=== PATIENT | female | born 1975 | race Hispanic/Latino ===

== ENCOUNTER 2019-02-14 14:25 | Emergency (ER) | payer MEDICAID, OTHER ==
[~2019-02-14 14:25] MED LIST: TYL2 PO; ZOLP10TA6 PO
[2019-02-14] MEDS ORDERED: ONDANSETRON HCL 4 MG/2 ML VIAL ONE (14:47)
[2019-02-14] MEDS ORDERED: SODIUM CHLORIDE 0.9% 1000ML 1,000 ML IV ONE ×2 (14:47→15:34)
[2019-02-14 14:58] LABS: BASOPHILS % (AUTO) 0.3 % (0.0-5.0); EOSINOPHILS % (AUTO) 0.2 % (0.0-8.0); HEMATOCRIT 47.9 % (36-48); LYMPHOCYTES % (AUTO) 3.1 % (21.0-51.0); MEAN CORPUSCULAR HEMOGLOBIN 29.2 pg (27.0-33.0); MEAN CORPUSCULAR HGB CONC 33.7 g/dL (32.0-36.0); MEAN CORPUSCULAR VOLUME 86.4 fL (79-99); MONOCYTES % (AUTO) 2.3 % (3.0-13.0); NEUTROPHILS % (AUTO) 94.1 % (40.0-77.0); PLATELET COUNT (AUTO) 286 K/uL (130-400); RED BLOOD CELL COUNT(AUTO) 5.54 MIL/uL (4.00-5.50); RED CELL DISTRIBUTION WIDTH 13.3 % (11.0-15.5); WHITE BLOOD COUNT (AUTO) 15.8 K/uL (4.8-10.8)
[2019-02-14 15:01] LABS: APPEARANCE,URINE Cloudy (CLEAR); BILIRUBIN,URINE Negative (NEGATIVE); COLOR,URINE Yellow (YELLOW); GLUCOSE, URINE (UA) Negative (NEGATIVE); KETONES,URINE 40 mg/dL (NEGATIVE); LEUKOCYTE ESTERASE ,URINE Small (NEGATIVE); NITRATE,URINE Negative (NEGATIVE); OCCULT BLOOD,URINE Negative (NEGATIVE); PROTEIN,URINE Trace mg/dL (NEGATIVE)
[2019-02-14 15:04] LABS: HCG,QUAL RESULT NEGATIVE (NEGATIVE)
[2019-02-14 15:09] LABS: CREATININE 0.9 mg/dL (0.5-1.5); POTASSIUM 3.9 mmol/L (3.5-5.1)
[2019-02-14 15:13] LABS: BILIRUBIN,TOTAL 0.6 mg/dL (0.2-1.0); TOTAL PROTEIN, SERUM 8.6 g/dL (6.0-8.3)
[2019-02-14 15:20] LABS: BACTERIA,URINE Moderate /HPF (None Seen); MUCUS,URINE Moderate LPF (None Seen)
[2019-02-14] MEDS ORDERED: FAMOTIDINE/PF 20 MG/2 ML VIAL IV ONE (15:35)
[2019-02-14] MEDS ORDERED: MORPHINE SULFATE 4 MG/1ML SYG ONE (15:35)
[2019-02-14] MEDS ORDERED: IOHEXOL-350 75 ML VIAL IV ONE (17:10)
== END 2019-02-14 18:09 | disposition home or self-care (01) ==
LOC: EDH 14:25
DX: R19.7 Diarrhea, unspecified (principal); R11.2 Nausea with vomiting, unspecified; R10.13 Epigastric pain; I10 Essential (primary) hypertension; Z90.710 Acquired absence of both cervix and uterus
CPT/HCPCS: 36415; 74177; 80053; 81001; 81025; 82150; 83690; 85025; 96365; 96366; 96375; 99285; J2270; J2405; J3490; J7030 ×2; Q9967

== ENCOUNTER 2019-03-15 12:26 | Emergency (ER) | payer SELFPAY ==
[2019-03-15] MEDS ORDERED: ACETAMINOPHEN 325 MG TAB ONE (13:21)
[2019-03-15] MEDS ORDERED: PHENAZOPYRIDINE HCL 200 MG TABLET ONE (13:37)
[2019-03-15 14:33] LABS: APPEARANCE,URINE Cloudy (CLEAR); BILIRUBIN,URINE Negative (NEGATIVE); COLOR,URINE Yellow (YELLOW); GLUCOSE, URINE (UA) Negative (NEGATIVE); KETONES,URINE Negative (NEGATIVE); LEUKOCYTE ESTERASE ,URINE Moderate (NEGATIVE); NITRATE,URINE Negative (NEGATIVE); OCCULT BLOOD,URINE Negative (NEGATIVE); PH,URINE 6.5 (5.0-8.0); PROTEIN,URINE Negative (NEGATIVE)
[2019-03-15] MEDS ORDERED: LIDOCAINE HCL-MPF 1% 2ML VIAL ONE (15:04)
[2019-03-15] MEDS ORDERED: CEFTRIAXONE SODIUM 1 GM ONE (15:04)
[2019-03-15 15:11] LABS: BACTERIA,URINE Few /HPF (None Seen); RBC,URINE 0-1 /HPF (0-1); SQUAMOUS EPITHELIAL CELL,UR 30-50 /HPF (0-2)
== END 2019-03-15 15:34 | disposition home or self-care (01) ==
LOC: EDH 12:26
DX: N39.0 Urinary tract infection, site not specified (principal); I10 Essential (primary) hypertension; Z90.710 Acquired absence of both cervix and uterus; Z87.891 Personal history of nicotine dependence
CPT/HCPCS: 81001; 96372; 99283; J0696; J3490

== ENCOUNTER 2021-09-03 09:45 | Inpatient (IN) | payer OTHER ==
[~2021-09-03] VITALS: Ht 162.6 cm; Wt 113.4 kg
[2021-09-03 10:39] LABS: BASOPHILS % (AUTO) 0.4 % (0.0-5.0); EOSINOPHILS % (AUTO) 1.5 % (0.0-8.0); HEMATOCRIT 44.3 % (36-48); LYMPHOCYTES % (AUTO) 19.9 % (21.0-51.0); MEAN CORPUSCULAR HEMOGLOBIN 27.7 pg (27.0-33.0); MEAN CORPUSCULAR HGB CONC 32.7 g/dL (32.0-36.0); MEAN CORPUSCULAR VOLUME 84.5 fL (79-99); MONOCYTES % (AUTO) 4.2 % (3.0-13.0); NEUTROPHILS % (AUTO) 73.8 % (40.0-77.0); PLATELET COUNT (AUTO) 304 K/uL (130-400); RED BLOOD CELL COUNT(AUTO) 5.24 MIL/uL (4.00-5.50); RED CELL DISTRIBUTION WIDTH 12.7 % (11.0-15.5); WHITE BLOOD COUNT (AUTO) 9.6 K/uL (4.8-10.8)
[2021-09-03 10:43] LABS: APPEARANCE,URINE Clear (CLEAR); BILIRUBIN,URINE Negative (NEGATIVE); COLOR,URINE Yellow (YELLOW); GLUCOSE, URINE (UA) Negative (NEGATIVE); KETONES,URINE Negative (NEGATIVE); LEUKOCYTE ESTERASE ,URINE Trace (NEGATIVE); NITRATE,URINE Negative (NEGATIVE); OCCULT BLOOD,URINE Trace (NEGATIVE); PH,URINE 6.5 (5.0-8.0); PROTEIN,URINE Negative (NEGATIVE)
[2021-09-03 10:48] LABS: CREATININE 1.1 mg/dL (0.5-1.5)
[2021-09-03 10:52] LABS: ALBUMIN 3.6 g/dL (3.5-5.0); BILIRUBIN,TOTAL 0.6 mg/dL (0.2-1.0)
[2021-09-03 11:00] LABS: HCG,QUAL RESULT NEGATIVE (NEGATIVE)
[2021-09-03 11:22] LABS: BACTERIA,URINE Rare /HPF (None Seen); RBC,URINE None Seen /HPF (0-1); SQUAMOUS EPITHELIAL CELL,UR 0-2 /HPF (0-2); WBC,URINE 0-1 /HPF (0-1)
[2021-09-03] MEDS ORDERED: KETOROLAC 30MG VIAL (30MG/ML) IVP SCH (12:00)
[2021-09-03] MEDS ORDERED: TAMSULOSIN HCL 0.4 MG CAP.ER.24H ONE ×2 (12:25→20:23)
[2021-09-03] MEDS ORDERED: 0.9%NACL 1000ML 1,000 ML IV ONE (13:30)
[2021-09-03] MEDS ORDERED: MORPHINE 4 MG SYG IVP ONE (13:30)
[2021-09-03] MEDS ORDERED: ONDANSETRON 4MG INJ IVP ONE (13:30)
[2021-09-03] MEDS ORDERED: TAMSULOSIN HCL 0.4 MG CAP.ER.24H PO SCH ×2 (13:30→21:00)
[2021-09-03] MEDS ORDERED: ONDANSETRON 4MG INJ IVP PRN (14:00)
[2021-09-03] MEDS: CEFTRIAXONE 2GM VIAL IVP SCH (15:25)
[2021-09-03 17:00] VITALS: BP 147/80
[2021-09-03] MEDS: MORPHINE 2 MG SYG IVP PRN (18:06)
[2021-09-03 19:48] VITALS: BP 150/79
[2021-09-03] MEDS: LACTATED RINGERS 1000ML 1,000 ML IV SCH (20:29)
[2021-09-03 23:22] VITALS: BP 125/79
[2021-09-04] VITALS (12 sets, daily range): BP systolic 133–152; BP diastolic 71–103
[2021-09-04] MEDS: MORPHINE 2 MG SYG IVP PRN ×4 (00:19→22:39)
[2021-09-04] MEDS: LACTATED RINGERS 1000ML 1,000 ML IV SCH ×3 (03:26→22:36)
[2021-09-04 05:09] LABS: INR 1.08 (0.85-1.15); PROTHROMBIN TIME 11.7 SEC (9.6-11.6)
[2021-09-04 06:31] LABS: BASOPHILS % (AUTO) 0.4 % (0.0-5.0); EOSINOPHILS % (AUTO) 1.6 % (0.0-8.0); HEMATOCRIT 40.3 % (36-48); LYMPHOCYTES % (AUTO) 18.3 % (21.0-51.0); MEAN CORPUSCULAR HEMOGLOBIN 28.8 pg (27.0-33.0); MEAN CORPUSCULAR VOLUME 84.8 fL (79-99); MONOCYTES % (AUTO) 4.9 % (3.0-13.0); NEUTROPHILS % (AUTO) 74.5 % (40.0-77.0); PLATELET COUNT (AUTO) 264 K/uL (130-400); RED BLOOD CELL COUNT(AUTO) 4.75 MIL/uL (4.00-5.50); RED CELL DISTRIBUTION WIDTH 12.9 % (11.0-15.5)
[2021-09-04 06:39] LABS: POTASSIUM 3.7 mmol/L (3.5-5.1)
[2021-09-04] MEDS: PANTOPRAZOLE 40 MG/VIAL IVP SCH (08:57)
[2021-09-04] MEDS: TAMSULOSIN HCL 0.4 MG CAP.ER.24H PO SCH (08:57)
[2021-09-04] MEDS: ASPIRIN 81MG CHEW TAB PO SCH ×2 (08:57→09:00)
[2021-09-04] MEDS ORDERED: MIDAZOLAM HCL 1 MG/ML 2ML VIAL ONE (11:55)
[2021-09-04] MEDS ORDERED: IOHEXOL-350 75 ML VIAL IV ONE (11:55)
[2021-09-04] MEDS ORDERED: FENTANYL CITRATE PF 50 MCG/1 ML 2ML VIAL ONE ×2 (11:55→12:23)
[2021-09-04] MEDS ORDERED: LIDOCAINE HCL 1% MDV 50ML VIAL ONE (11:56)
[2021-09-04] MEDS: CEFTRIAXONE 2GM VIAL IVP SCH (15:16)
[2021-09-04] MEDS: KETOROLAC 15MG/ML VIAL (15MG/ML) IV PRN (17:37)
[2021-09-05 04:01] VITALS: BP 121/67
[2021-09-05 04:50] LABS: HEMATOCRIT 38.5 % (36-48); MEAN CORPUSCULAR HEMOGLOBIN 27.9 pg (27.0-33.0); MEAN CORPUSCULAR HGB CONC 32.7 g/dL (32.0-36.0); MEAN CORPUSCULAR VOLUME 85.2 fL (79-99); RED BLOOD CELL COUNT(AUTO) 4.52 MIL/uL (4.00-5.50); RED CELL DISTRIBUTION WIDTH 12.7 % (11.0-15.5); WHITE BLOOD COUNT (AUTO) 7.1 K/uL (4.8-10.8)
[2021-09-05 05:02] LABS: CREATININE 0.8 mg/dL (0.5-1.5); POTASSIUM 3.1 mmol/L (3.5-5.1)
[2021-09-05 08:00] VITALS: BP 152/87
[2021-09-05] MEDS: PANTOPRAZOLE 40 MG/VIAL IVP SCH (09:16)
[2021-09-05] MEDS: TAMSULOSIN HCL 0.4 MG CAP.ER.24H PO SCH (09:16)
[2021-09-05] MEDS: ASPIRIN 81MG CHEW TAB PO SCH (09:17)
[2021-09-05] MEDS: MORPHINE 2 MG SYG IVP PRN (09:20)
[2021-09-05] MEDS ORDERED: POTASSIUM CHLORIDE 20MEQ/100ML 100 ML IV PRN (10:00)
[2021-09-05] MEDS ORDERED: POTASSIUM CHLORIDE 10% ELIXIR 20 MEQ/15 ML UDCUP PO SCH (10:00)
[2021-09-05] MEDS ORDERED: POTASSIUM CHLORIDE 10% ELIXIR 20 MEQ/15 ML UDCUP PO PRN (10:00)
[2021-09-05] MEDS ORDERED: LIDOCAINE HCL-MPF 1% 2ML VIAL IV PRN (10:00)
[2021-09-05] MEDS ORDERED: LACTATED RINGERS 1000ML 1,000 ML IV SCH (10:30)
[2021-09-05 10:33] LABS: INR 1.07 (0.85-1.15); PROTHROMBIN TIME 11.6 SEC (9.6-11.6)
[2021-09-05 10:34] LABS: PARTIAL THROMBOPLASTIN TIME 29.4 SEC (26.3-35.5)
[2021-09-05] MEDS ORDERED: AMOX-426 PO (11:09)
[2021-09-05] MEDS ORDERED: ACET-2079 PO (11:09)
[2021-09-05 12:00] VITALS: BP 148/95
[2021-09-05] MEDS: KCL 20 MEQ ERTAB PO PRN ×2 (12:51→14:55)
[2021-09-05] MEDS: KETOROLAC 15MG/ML VIAL (15MG/ML) IV PRN (12:56)
[2021-09-05] MEDS: CEFTRIAXONE 2GM VIAL IVP SCH (14:54)
== END 2021-09-05 15:49 | disposition home or self-care (01) | DRG 694 ==
LOC: EDH 09:45 → EDHIP 09:46 → INTOOBSV 13:58 → UNDOADMOB 13:58 → OBSVTOIN 13:58 → EDHIP 13:58 → 3BH 17:06
PROVIDERS: ADMIT Hospitalist; ATTEND Hospitalist
PROC: 0TJ53ZZ Inspection of Kidney, Percutaneous Approach (ICD-10-PCS; principal; 2021-09-04)
DX: N13.2 Hydronephrosis with renal and ureteral calculous obstruction (principal); Z68.41 Body mass index [BMI] 40.0-44.9, adult; E66.01 Morbid (severe) obesity due to excess calories; N13.9 Obstructive and reflux uropathy, unspecified; E78.00 Pure hypercholesterolemia, unspecified; I10 Essential (primary) hypertension; Z86.73 Personal history of transient ischemic attack (TIA), and cerebral infarction without residual deficits; Z82.49 Family history of ischemic heart disease and other diseases of the circulatory system; Z83.3 Family history of diabetes mellitus; Z82.0 Family history of epilepsy and other diseases of the nervous system; Z82.5 Family history of asthma and other chronic lower respiratory diseases; Z90.49 Acquired absence of other specified parts of digestive tract; Z82.3 Family history of stroke
CPT/HCPCS: 36415; 50432; 74176; 76942; 80048; 80053; 81001; 81025; 83690; 85025; 85027; 85610; 85730; 87071; 87076; 87077; 87088; 87186; 87205; 99156; 99157; C1729; C1894; C9113; G0378; J0696; J1644; J1885; J2250; J2270; J2405; J3010; J3490; J7120; Q9967

== ENCOUNTER 2021-09-11 22:45 | Emergency (ER) | payer OTHER ==
[~2021-09-11] VITALS: Ht 162.6 cm; Wt 113.4 kg
[~2021-09-11 22:45] MED LIST changes: +ACET-2079 PO; +AMOX-426 PO; -TYL2 PO; -ZOLP10TA6 PO
[2021-09-12 01:21] LABS: BASOPHILS % (AUTO) 0.3 % (0.0-5.0); EOSINOPHILS % (AUTO) 1.7 % (0.0-8.0); HEMATOCRIT 43.4 % (36-48); LYMPHOCYTES % (AUTO) 31.5 % (21.0-51.0); MEAN CORPUSCULAR HEMOGLOBIN 28.7 pg (27.0-33.0); MEAN CORPUSCULAR HGB CONC 32.9 g/dL (32.0-36.0); MONOCYTES % (AUTO) 4.1 % (3.0-13.0); NEUTROPHILS % (AUTO) 62.1 % (40.0-77.0); PLATELET COUNT (AUTO) 231 K/uL (130-400); RED BLOOD CELL COUNT(AUTO) 4.99 MIL/uL (4.00-5.50); RED CELL DISTRIBUTION WIDTH 13.1 % (11.0-15.5); WHITE BLOOD COUNT (AUTO) 11.8 K/uL (4.8-10.8)
[2021-09-12 01:29] LABS: CREATININE 0.7 mg/dL (0.5-1.5); POTASSIUM 4.7 mmol/L (3.5-5.1)
[2021-09-12 01:33] LABS: ALBUMIN 3.5 g/dL (3.5-5.0); BILIRUBIN,TOTAL 0.4 mg/dL (0.2-1.0); TOTAL PROTEIN, SERUM 7.6 g/dL (6.0-8.3)
[2021-09-12] MEDS ORDERED: ONDANSETRON 4MG INJ ONE (01:47)
[2021-09-12] MEDS ORDERED: MORPHINE 4 MG SYG ONE (01:48)
[2021-09-12] MEDS ORDERED: ONDANSETRON 4MG INJ IVP ONE (02:00)
[2021-09-12] MEDS ORDERED: MORPHINE 4 MG SYG IVP ONE (02:00)
[2021-09-12 03:32] VITALS: BP 122/74
[2021-09-12] MEDS ORDERED: KETOROLAC 30MG VIAL (30MG/ML) ONE (03:45)
[2021-09-12 04:07] LABS: APPEARANCE,URINE Cloudy (CLEAR); BILIRUBIN,URINE Negative (NEGATIVE); COLOR,URINE Yellow (YELLOW); GLUCOSE, URINE (UA) Negative (NEGATIVE); KETONES,URINE 15 mg/dL (NEGATIVE); LEUKOCYTE ESTERASE ,URINE Small (NEGATIVE); NITRATE,URINE Negative (NEGATIVE); OCCULT BLOOD,URINE Negative (NEGATIVE); PH,URINE 5.5 (5.0-8.0); PROTEIN,URINE Negative (NEGATIVE)
[2021-09-12 04:24] LABS: BACTERIA,URINE Moderate /HPF (None Seen); MUCUS,URINE Moderate LPF (None Seen); RBC,URINE None Seen /HPF (0-1); SQUAMOUS EPITHELIAL CELL,UR Few /HPF (0-2)
[2021-09-12] MEDS ORDERED: ACET-2079 PO (05:18)
[2021-09-12] MEDS ORDERED: ONDA4TAB10 PO (05:19)
[2021-09-12] MEDS ORDERED: KETOROLAC 30MG VIAL (30MG/ML) IVP ONE (05:30)
== END 2021-09-12 05:41 | disposition home or self-care (01) ==
LOC: EDH 22:45
DX: R10.9 Unspecified abdominal pain (principal); I10 Essential (primary) hypertension; Z87.442 Personal history of urinary calculi; Z98.890 Other specified postprocedural states
CPT/HCPCS: 36415; 76770; 80053; 81001; 85025; 87088; 96374; 96375; 99284; J1885; J2270; J2405

== ENCOUNTER 2021-10-10 18:41 | Inpatient (IN) | payer OTHER ==
[~2021-10-10] VITALS: Ht 162.6 cm; Wt 111.9 kg
[~2021-10-10 18:41] MED LIST changes: +ONDA4TAB10 PO
[2021-10-10 19:11] LABS: BASOPHILS % (AUTO) 0.3 % (0.0-5.0); EOSINOPHILS % (AUTO) 0.9 % (0.0-8.0); HEMATOCRIT 41.4 % (36-48); LYMPHOCYTES % (AUTO) 10.8 % (21.0-51.0); MEAN CORPUSCULAR HEMOGLOBIN 28.3 pg (27.0-33.0); MEAN CORPUSCULAR HGB CONC 33.6 g/dL (32.0-36.0); MEAN CORPUSCULAR VOLUME 84.3 fL (79-99); MONOCYTES % (AUTO) 4.7 % (3.0-13.0); NEUTROPHILS % (AUTO) 83.1 % (40.0-77.0); PLATELET COUNT (AUTO) 301 K/uL (130-400); RED BLOOD CELL COUNT(AUTO) 4.91 MIL/uL (4.00-5.50); RED CELL DISTRIBUTION WIDTH 13.2 % (11.0-15.5); WHITE BLOOD COUNT (AUTO) 13.8 K/uL (4.8-10.8)
[2021-10-10 19:18] LABS: CARBON DIOXIDE 26 mmol/L (21-32); CHLORIDE 104 mmol/L (101-111); GLOMERULAR FILTR. RATE CALC 64 mL/min (>60); GLUCOSE,RANDOM 114 mg/dL (70-105); POTASSIUM 3.1 mmol/L (3.5-5.1); SODIUM SERUM 138 mmol/L (136-145); UREA NITROGEN, BLOOD 18 mg/dL (7-18)
[2021-10-10 19:22] LABS: ALANINE AMINOTRANSFERASE 32 U/L (12-78); ALBUMIN 3.6 g/dL (3.5-5.0); ASPARTATE AMINOTRANSFERASE 22 U/L (10-37); BILIRUBIN,TOTAL 0.4 mg/dL (0.2-1.0); TOTAL PROTEIN, SERUM 7.6 g/dL (6.0-8.3)
[2021-10-10 19:28] LABS: LIPASE < 50 U/L (114-286)
[2021-10-10 19:35] LABS: APPEARANCE,URINE Turbid (CLEAR); BILIRUBIN,URINE Negative (NEGATIVE); COLOR,URINE Orange (YELLOW); GLUCOSE, URINE (UA) Negative (NEGATIVE); KETONES,URINE 40 mg/dL (NEGATIVE); LEUKOCYTE ESTERASE ,URINE Large (NEGATIVE); NITRATE,URINE Negative (NEGATIVE); OCCULT BLOOD,URINE Large (NEGATIVE); PH,URINE 7.5 (5.0-8.0); PROTEIN,URINE POS 2+ mg/dL (NEGATIVE); UROBILINOGEN,URINE 0.2 mg/dL (0.2-1.0)
[2021-10-10 20:09] LABS: BACTERIA,URINE Moderate /HPF (None Seen); TRICHOMONAS,URINE Few /LPF (None Seen); WBC,URINE 26-50 /HPF (0-1)
[2021-10-10 20:10] LABS: MUCUS,URINE Moderate LPF (None Seen); SQUAMOUS EPITHELIAL CELL,UR Moderate /HPF (0-2)
[2021-10-10] MEDS ORDERED: ONDANSETRON 4MG INJ IVP STA (20:21)
[2021-10-10] MEDS ORDERED: MORPHINE 4 MG SYG IVP STA (20:21)
[2021-10-10] MEDS ORDERED: KETOROLAC 30MG VIAL (30MG/ML) IVP ONE (20:30)
[2021-10-10] MEDS ORDERED: 0.9%NACL 1000ML 1,000 ML IV ONE (20:30)
[2021-10-10] MEDS ORDERED: CEFTRIAXONE 1G VIAL IVP STA (21:04)
[2021-10-10] MEDS ORDERED: KCL 20 MEQ ERTAB PO ONE (21:30)
[2021-10-10] MEDS ORDERED: POTASSIUM CHLORIDE 10% ELIXIR 20 MEQ/15 ML UDCUP PO PRN (22:00)
[2021-10-10] MEDS ORDERED: LIDOCAINE HCL-MPF 1% 2ML VIAL IV PRN (22:00)
[2021-10-10] MEDS ORDERED: POTASSIUM CHLORIDE 20MEQ/100ML 100 ML IV PRN (22:00)
[2021-10-10] MEDS: CEFTRIAXONE 1G VIAL IV SCH (23:15)
[2021-10-10] MEDS: 0.9%NACL 1000ML 1,000 ML IV SCH (23:15)
[2021-10-10] MEDS: PHENAZOPYRIDINE HCL 200 MG TABLET PO SCH (23:15)
[2021-10-10] MEDS ORDERED: MORPHINE 2 MG SYG IVP PRN (23:30)
[2021-10-11] MEDS ORDERED: MORPHINE 4 MG SYG ONE (01:00)
[2021-10-11] MEDS ORDERED: IOHEXOL 350 MG/ML 100ML INFUS..BTL IV ONE (01:04)
[2021-10-11 02:40] VITALS: BP 134/88
[2021-10-11 05:10] LABS: BASOPHILS % (AUTO) 0.4 % (0.0-5.0); HEMATOCRIT 36.8 % (36-48); LYMPHOCYTES % (AUTO) 30.4 % (21.0-51.0); MEAN CORPUSCULAR HEMOGLOBIN 27.6 pg (27.0-33.0); MEAN CORPUSCULAR HGB CONC 32.1 g/dL (32.0-36.0); MEAN CORPUSCULAR VOLUME 86.2 fL (79-99); MONOCYTES % (AUTO) 5.7 % (3.0-13.0); NEUTROPHILS % (AUTO) 60.2 % (40.0-77.0); PLATELET COUNT (AUTO) 259 K/uL (130-400); RED BLOOD CELL COUNT(AUTO) 4.27 MIL/uL (4.00-5.50); RED CELL DISTRIBUTION WIDTH 13.3 % (11.0-15.5); WHITE BLOOD COUNT (AUTO) 9.4 K/uL (4.8-10.8)
[2021-10-11 05:28] LABS: CREATININE 0.8 mg/dL (0.5-1.5); MAGNESIUM 1.9 mg/dL (1.80-2.40); PHOSPHORUS 2.9 mg/dL (2.5-4.9); POTASSIUM 3.6 mmol/L (3.5-5.1)
[2021-10-11] MEDS: PHENAZOPYRIDINE HCL 200 MG TABLET PO SCH ×3 (06:44→22:15)
[2021-10-11] MEDS: MORPHINE 4 MG SYG IVP PRN ×3 (06:45→17:18)
[2021-10-11 08:00] VITALS: BP 136/81
[2021-10-11] MEDS ORDERED: METRONIDAZOLE 500 MG TABLET PO SCH (09:00)
[2021-10-11] MEDS ORDERED: ENOXAPARIN SODIUM 40 MG/0.4 ML SYRINGE SQ SCH (09:00)
[2021-10-11] MEDS: FAMOTIDINE 20MG TAB PO SCH ×2 (09:06→22:15)
[2021-10-11] MEDS: 0.9%NACL 1000ML 1,000 ML IV SCH ×2 (09:07→22:14)
[2021-10-11 11:43] VITALS: BP 139/87
[2021-10-11 15:48] VITALS: BP 135/86
[2021-10-11 20:00] VITALS: BP 136/76
[2021-10-11] MEDS ORDERED: ONDANSETRON 4MG INJ ONE (22:10)
[2021-10-11] MEDS: CEFTRIAXONE 1G VIAL IV SCH (22:15)
[2021-10-11] MEDS: KCL 20 MEQ ERTAB PO PRN ×2 (22:15→23:50)
[2021-10-12] MEDS: MORPHINE 4 MG SYG IVP PRN ×4 (00:11→22:59)
[2021-10-12 00:18] VITALS: BP 132/81
[2021-10-12 04:00] VITALS: BP 131/69
[2021-10-12] MEDS: PHENAZOPYRIDINE HCL 200 MG TABLET PO SCH ×3 (06:52→21:17)
[2021-10-12 08:00] VITALS: BP 114/76
[2021-10-12] MEDS: FAMOTIDINE 20MG TAB PO SCH ×2 (09:32→21:17)
[2021-10-12] MEDS: ACETAMINOPHEN 325 MG TAB PO PRN ×2 (09:44→21:22)
[2021-10-12 11:49] VITALS: BP 121/84
[2021-10-12] MEDS: ONDANSETRON 4MG INJ IVP PRN ×2 (14:19→19:31)
[2021-10-12] MEDS: 0.9%NACL 1000ML 1,000 ML IV SCH ×2 (14:30→19:33)
[2021-10-12 16:00] VITALS: BP 109/70
[2021-10-12] MEDS: ZOSYN 3.375GM +NS 50ML IV SCH ×2 (16:48→22:54)
[2021-10-12 20:00] VITALS: BP 131/87
[2021-10-13] VITALS: BP 92/52
[2021-10-13 04:29] VITALS: BP 111/73
[2021-10-13] MEDS: ZOSYN 3.375GM +NS 50ML IV SCH ×3 (05:36→21:03)
[2021-10-13] MEDS: MORPHINE 4 MG SYG IVP PRN ×4 (05:36→23:46)
[2021-10-13 06:28] LABS: BASOPHILS % (AUTO) 0.4 % (0.0-5.0); EOSINOPHILS % (AUTO) 1.2 % (0.0-8.0); HEMATOCRIT 37.1 % (36-48); LYMPHOCYTES % (AUTO) 14.5 % (21.0-51.0); MEAN CORPUSCULAR HEMOGLOBIN 27.9 pg (27.0-33.0); MEAN CORPUSCULAR HGB CONC 32.1 g/dL (32.0-36.0); MEAN CORPUSCULAR VOLUME 87.1 fL (79-99); MONOCYTES % (AUTO) 8.5 % (3.0-13.0); NEUTROPHILS % (AUTO) 74.9 % (40.0-77.0); PLATELET COUNT (AUTO) 206 K/uL (130-400); RED BLOOD CELL COUNT(AUTO) 4.26 MIL/uL (4.00-5.50); WHITE BLOOD COUNT (AUTO) 10.6 K/uL (4.8-10.8)
[2021-10-13 06:38] LABS: INR 1.05 (0.85-1.15); PROTHROMBIN TIME 11.4 SEC (9.6-11.6)
[2021-10-13 06:40] LABS: PARTIAL THROMBOPLASTIN TIME 28.6 SEC (26.3-35.5)
[2021-10-13 06:44] LABS: ALBUMIN 2.7 g/dL (3.5-5.0); BILIRUBIN,TOTAL 0.4 mg/dL (0.2-1.0); CREATININE 0.9 mg/dL (0.5-1.5); MAGNESIUM 1.6 mg/dL (1.80-2.40); POTASSIUM 3.4 mmol/L (3.5-5.1); TOTAL PROTEIN, SERUM 6.6 g/dL (6.0-8.3)
[2021-10-13 08:00] VITALS: BP 110/57
[2021-10-13] MEDS: FAMOTIDINE 20MG TAB PO SCH ×2 (09:00→20:40)
[2021-10-13] MEDS: ONDANSETRON 4MG INJ IVP PRN ×2 (10:05→19:09)
[2021-10-13 12:21] VITALS: BP 141/96
[2021-10-13] MEDS ORDERED: KETOROLAC 15MG/ML VIAL (15MG/ML) IV PRN (13:30)
[2021-10-13 16:00] VITALS: BP 116/63
[2021-10-13 20:48] VITALS: BP 147/88
[2021-10-13] MEDS ORDERED: LACTULOSE 20 GM/30 ML UDCUP PO PRN (21:00)
[2021-10-14 00:31] VITALS: BP 117/72
[2021-10-14 04:22] VITALS: BP 122/68
[2021-10-14] MEDS: ZOSYN 3.375GM +NS 50ML IV SCH ×3 (06:03→21:55)
[2021-10-14] MEDS: 0.9%NACL 1000ML 1,000 ML IV SCH (06:06)
[2021-10-14] MEDS: MORPHINE 4 MG SYG IVP PRN ×2 (06:25→12:18)
[2021-10-14 08:00] VITALS: BP 113/73
[2021-10-14 08:22] LABS: BASOPHILS % (AUTO) 0.5 % (0.0-5.0); EOSINOPHILS % (AUTO) 2.1 % (0.0-8.0); HEMATOCRIT 38.6 % (36-48); LYMPHOCYTES % (AUTO) 16.2 % (21.0-51.0); MEAN CORPUSCULAR HEMOGLOBIN 28.4 pg (27.0-33.0); MEAN CORPUSCULAR HGB CONC 32.6 g/dL (32.0-36.0); MEAN CORPUSCULAR VOLUME 86.9 fL (79-99); MONOCYTES % (AUTO) 6.2 % (3.0-13.0); NEUTROPHILS % (AUTO) 74.6 % (40.0-77.0); PLATELET COUNT (AUTO) 229 K/uL (130-400); RED BLOOD CELL COUNT(AUTO) 4.44 MIL/uL (4.00-5.50); RED CELL DISTRIBUTION WIDTH 12.9 % (11.0-15.5)
[2021-10-14 08:29] LABS: CREATININE 0.8 mg/dL (0.5-1.5); POTASSIUM 4.3 mmol/L (3.5-5.1)
[2021-10-14] MEDS: FAMOTIDINE 20MG TAB PO SCH ×2 (09:00→21:29)
[2021-10-14 12:00] VITALS: BP_SYST 113; BP_SYST 137; BP_DIAS 48; BP_DIAS 65
[2021-10-14] MEDS ORDERED: MIDAZOLAM HCL 1 MG/ML 2ML VIAL ONE (14:55)
[2021-10-14] MEDS ORDERED: FENTANYL CITRATE PF 50 MCG/1 ML 2ML VIAL ONE (14:55)
[2021-10-14] MEDS ORDERED: IOHEXOL-350 50ML VIAL IV ONE (14:55)
[2021-10-14] MEDS ORDERED: LIDOCAINE HCL 400MG/20ML VIAL ONE (14:56)
[2021-10-14 15:49] VITALS: BP 143/85
[2021-10-14] MEDS: HYDROMORPHONE 0.5 MG SYG (0.5MG/0.5ML) IVP PRN (18:32)
[2021-10-14 20:00] VITALS: BP 109/56
[2021-10-15] VITALS (10 sets, daily range): BP systolic 114–139; BP diastolic 64–97
[2021-10-15] MEDS: HYDROMORPHONE 0.5 MG SYG (0.5MG/0.5ML) IVP PRN ×4 (00:56→20:31)
[2021-10-15] MEDS: ZOSYN 3.375GM +NS 50ML IV SCH ×3 (05:29→22:35)
[2021-10-15] MEDS: 0.9%NACL 1000ML 1,000 ML IV SCH ×2 (05:35→07:23)
[2021-10-15] MEDS ORDERED: FUROSEMIDE 40MG VIAL ONE (08:10)
[2021-10-15] MEDS: FAMOTIDINE 20MG TAB PO SCH ×2 (10:01→20:29)
[2021-10-15 10:20] LABS: CREATININE 0.9 mg/dL (0.5-1.5); MAGNESIUM 1.8 mg/dL (1.80-2.40); POTASSIUM 3.9 mmol/L (3.5-5.1)
[2021-10-15] MEDS: DOCUSATE SODIUM 100 MG CAP PO SCH (20:30)
[2021-10-16] MEDS: 0.9%NACL 1000ML 1,000 ML IV SCH (02:38)
[2021-10-16] MEDS: HYDROMORPHONE 0.5 MG SYG (0.5MG/0.5ML) IVP PRN ×2 (03:43→09:49)
[2021-10-16 04:11] VITALS: BP 123/75
[2021-10-16 04:38] LABS: HEMATOCRIT 41.7 % (36-48); MEAN CORPUSCULAR HEMOGLOBIN 27.7 pg (27.0-33.0); MEAN CORPUSCULAR HGB CONC 31.9 g/dL (32.0-36.0); MEAN CORPUSCULAR VOLUME 86.9 fL (79-99); RED BLOOD CELL COUNT(AUTO) 4.8 MIL/uL (4.00-5.50); RED CELL DISTRIBUTION WIDTH 12.9 % (11.0-15.5); WHITE BLOOD COUNT (AUTO) 7.2 K/uL (4.8-10.8)
[2021-10-16 04:49] LABS: CREATININE 0.8 mg/dL (0.5-1.5); POTASSIUM 4.1 mmol/L (3.5-5.1)
[2021-10-16] MEDS: ZOSYN 3.375GM +NS 50ML IV SCH (05:21)
[2021-10-16 08:00] VITALS: BP 109/47
[2021-10-16] MEDS: FAMOTIDINE 20MG TAB PO SCH (09:46)
[2021-10-16] MEDS: DOCUSATE SODIUM 100 MG CAP PO SCH (09:49)
[2021-10-16] MEDS ORDERED: NITR100C PO (11:11)
[2021-10-16 11:43] VITALS: BP 144/88
== END 2021-10-16 12:30 | disposition home or self-care (01) | DRG 872 ==
LOC: EDH 18:41 → EDHIP 21:49 → 3CH 10-11 02:26
PROVIDERS: ADMIT Hospitalist; ATTEND Hospitalist
DX: A41.81 Sepsis due to Enterococcus (principal); N13.6 Pyonephrosis; Z68.41 Body mass index [BMI] 40.0-44.9, adult; A59.9 Trichomoniasis, unspecified; E87.6 Hypokalemia; E66.01 Morbid (severe) obesity due to excess calories; R65.20 Severe sepsis without septic shock; I10 Essential (primary) hypertension; Z87.442 Personal history of urinary calculi; Z83.3 Family history of diabetes mellitus; Z82.49 Family history of ischemic heart disease and other diseases of the circulatory system; Z82.5 Family history of asthma and other chronic lower respiratory diseases; Z86.73 Personal history of transient ischemic attack (TIA), and cerebral infarction without residual deficits; E78.5 Hyperlipidemia, unspecified; Z82.0 Family history of epilepsy and other diseases of the nervous system; Z82.3 Family history of stroke; Z90.710 Acquired absence of both cervix and uterus; R53.81 Other malaise
CPT/HCPCS: 36415; 70450; 74177; 76705; 78708; 80048; 80053; 81001; 82948; 83605; 83690; 83735; 84100; 84145; 85025; 85027; 85610; 85730; 87040; 87077; 87088; 87186; A9562; C1894; G0378; J0696; J1170; J1644; J1885; J1940; J2250; J2270; J2405; J2543; J3010; J3490; J7030; Q9967

== ENCOUNTER 2022-02-13 10:43 | Observation (INO) | payer OTHER ==
[~2022-02-13] VITALS: Ht 162.6 cm; Wt 113.4 kg
[~2022-02-13 10:43] MED LIST changes: -ACET-2079 PO; -AMOX-426 PO; +NITR100C PO; -ONDA4TAB10 PO
[2022-02-13 11:27] LABS: CREATININE 0.9 mg/dL (0.5-1.5); POTASSIUM 3.3 mmol/L (3.5-5.1)
[2022-02-13 11:31] LABS: ALBUMIN 3.5 g/dL (3.5-5.0); TOTAL PROTEIN, SERUM 7.8 g/dL (6.0-8.3)
[2022-02-13 11:42] LABS: INR 0.96 (0.85-1.15); PROTHROMBIN TIME 10.5 SEC (9.6-11.6)
[2022-02-13 11:43] LABS: PARTIAL THROMBOPLASTIN TIME 27.4 SEC (26.3-35.5)
[2022-02-13] MEDS ORDERED: POTASSIUM BICARB/CIT AC 25 MEQ TABLET.EFF ONE (11:46)
[2022-02-13 11:55] LABS: BASOPHILS % (AUTO) 0.5 % (0.0-5.0); EOSINOPHILS % (AUTO) 1.1 % (0.0-8.0); HEMATOCRIT 43.9 % (36-48); LYMPHOCYTES % (AUTO) 28.8 % (21.0-51.0); MEAN CORPUSCULAR HGB CONC 33.7 g/dL (32.0-36.0); MONOCYTES % (AUTO) 4.6 % (3.0-13.0); NEUTROPHILS % (AUTO) 64.7 % (40.0-77.0); PLATELET COUNT (AUTO) 281 K/uL (130-400); RED BLOOD CELL COUNT(AUTO) 5.29 MIL/uL (4.00-5.50); RED CELL DISTRIBUTION WIDTH 12.8 % (11.0-15.5)
[2022-02-13] MEDS ORDERED: POTASSIUM BICARB/CIT AC 25 MEQ TABLET.EFF PO ONE (12:00)
[2022-02-13] MEDS ORDERED: DIPHENHYDRAMINE HCL 25 MG CAPSULE PO PRN (12:30)
[2022-02-13] MEDS ORDERED: GUAIFENESIN-DM 200/20 MG 10 ML PO PRN (12:30)
[2022-02-13] MEDS ORDERED: DiphenhydrAMINE HCL 50 MG/ML VIAL IV PRN (12:30)
[2022-02-13] MEDS ORDERED: LACTULOSE 20 GM/30 ML UDCUP PO PRN (12:30)
[2022-02-13] MEDS ORDERED: ACETAMINOPHEN 325 MG TAB PO PRN ×2 (12:30)
[2022-02-13] MEDS ORDERED: ONDANSETRON 4MG INJ IV PRN (12:30)
[2022-02-13] MEDS ORDERED: MAG/ALUM/SIMETH 30 ML UDCUP PO PRN (12:30)
[2022-02-13] MEDS: NITROGLYCERIN 0.4 MG SL TAB SL PRN ×2 (13:05→14:31)
[2022-02-13] MEDS ORDERED: HEPARIN 5,000 UNIT VIAL SQ SCH (14:00)
[2022-02-13] MEDS ORDERED: MORPHINE 2 MG SYG ONE (18:38)
[2022-02-13] MEDS ORDERED: HYDROCODONE/ACETAMINOPHEN 5/325 MG TAB PO PRN (19:00)
[2022-02-13] MEDS ORDERED: MORPHINE 2 MG SYG IVP PRN (19:00)
[2022-02-13 20:46] VITALS: BP 134/74
[2022-02-13] MEDS ORDERED: FAMOTIDINE 20MG TAB PO SCH (21:00)
[2022-02-13] MEDS ORDERED: FAMOTIDINE 20MG VIAL IV SCH (21:00)
[2022-02-13] MEDS ORDERED: ATORVASTATIN 40 MG TABLET PO SCH (21:00)
[2022-02-14] MEDS ORDERED: CLOPIDOGREL 75MG TAB PO SCH (09:00)
[2022-02-14] MEDS ORDERED: ASPIRIN 81 MG EC TAB PO SCH (09:00)
== END 2022-02-13 20:50 | disposition left against medical advice (07) ==
LOC: EDH 10:43 → EDHIP 12:17
PROVIDERS: ADMIT Internal Medicine; ATTEND Internal Medicine
DX: R07.89 Other chest pain (principal); I10 Essential (primary) hypertension; E11.9 Type 2 diabetes mellitus without complications; E87.1 Hypo-osmolality and hyponatremia; E87.6 Hypokalemia; Z86.73 Personal history of transient ischemic attack (TIA), and cerebral infarction without residual deficits; Z87.442 Personal history of urinary calculi; Z90.710 Acquired absence of both cervix and uterus; Z90.49 Acquired absence of other specified parts of digestive tract; Z98.84 Bariatric surgery status; Z79.899 Other long term (current) drug therapy; Z98.890 Other specified postprocedural states
CPT/HCPCS: 96374; 96372; 99285; 82550; 83874; 84484 ×2; 80053; 85025; 85378; 85610; 85730; 82948; 36415; 71045; 70450; 92522; 92610; 93005; G0378 ×8; J1644

== ENCOUNTER 2024-03-11 18:38 | Emergency (ER) | payer OTHER ==
[~2024-03-11] VITALS: Ht 162.6 cm; Wt 111.1 kg
[2024-03-11 20:49] LABS: BASOPHILS # (AUTO) 0.02 K/uL (0.00-0.20); BASOPHILS % (AUTO) 0.4 % (0.0-5.0); EOSINOPHILS # (AUTO) 0.02 K/uL (0.00-0.70); EOSINOPHILS % (AUTO) 0.4 % (0.0-8.0); HEMATOCRIT 45.8 % (36-48); IMMATURE GRANULOCYTE ABSOLUTE 0.01 K/uL (0-1); LYMPHOCYTES # (AUTO) 1.4 K/uL (1.0-4.8); LYMPHOCYTES % (AUTO) 25.4 % (21.0-51.0); MONOCYTES # (AUTO) 0.8 K/uL (0.1-1.0); MONOCYTES % (AUTO) 14.1 % (3.0-13.0); NEUTROPHILS # (AUTO) 3.2 K/uL (1.8-7.7); NEUTROPHILS % (AUTO) 59.5 % (40.0-77.0); PLATELET COUNT (AUTO) 197 K/uL (130-400); RED BLOOD CELL COUNT(AUTO) 5.39 MIL/uL (4.00-5.50); RED CELL DISTRIBUTION WIDTH 12.9 % (11.0-15.5); WHITE BLOOD COUNT (AUTO) 5.3 K/uL (4.8-10.8)
[2024-03-11 21:09] LABS: CREATININE 0.8 mg/dL (0.5-1.0); POTASSIUM 3.2 mmol/L (3.5-5.1)
[2024-03-11] MEDS ORDERED: IOHEXOL-350 75 ML VIAL IV ONE (21:32)
[2024-03-11 21:56] LABS: ALANINE AMINOTRANSFERASE 35 U/L (12-78); ALBUMIN 3.5 g/dL (3.5-5.0); ASPARTATE AMINOTRANSFERASE 30 U/L (10-37); BILIRUBIN,DIRECT < 0.1 mg/dL (0.0-0.3); BILIRUBIN,TOTAL 0.2 mg/dL (0.2-1.0)
[2024-03-11] MEDS: ketOROlac 30MG VIAL (30MG/ML) IM ONE (22:19)
[2024-03-11 22:25] LABS: ADD UA MICROSCOPIC YES; APPEARANCE,URINE CLEAR (CLEAR); BILIRUBIN,URINE NEGATIVE (NEGATIVE); COLOR,URINE LIGHT-YELLOW (YELLOW); GLUCOSE, URINE (UA) NEGATIVE (NEGATIVE); KETONES,URINE 20 mg/dL (NEGATIVE); LEUKOCYTE ESTERASE ,URINE NEGATIVE Leu/uL (NEGATIVE); NITRATE,URINE NEGATIVE (NEGATIVE); OCCULT BLOOD,URINE SMALL (NEGATIVE); PH,URINE 5.5 (5.0-8.0); PROTEIN,URINE 10 mg/dL (NEGATIVE); UROBILINOGEN,URINE 0.2 mg/dL (0.2-1.0)
[2024-03-11 22:26] LABS: MUCUS,URINE RARE LPF (None Seen); SQUAMOUS EPITHELIAL CELL,UR RARE /HPF (0-2)
[2024-03-11 22:32] LABS: RAPID GROUP A STREP negative (NEGATIVE)
[2024-03-11 22:43] LABS: COVID19 (SARS ANTIGEN RAPID) PRESUMPTIVE NEGATIVE (NEGATIVE); INFLUENZA TYPE B Negative For Type B (NEGATIVE)
[2024-03-11 22:46] LABS: INFLUENZA TYPE A Positive For Type A (NEGATIVE)
[2024-03-11] MEDS: acetaMINOPHEN WITH coDEINE 1 TAB TAB PO ONE (23:30)
[2024-03-11] MEDS: cefTRIAXone 1G VIAL IVPB ONE (23:30)
[2024-03-11] MEDS ORDERED: BENZ-39 PO (23:34)
[2024-03-11] MEDS ORDERED: OSEL75 PO (23:34)
[2024-03-11] MEDS ORDERED: ACET-2079 PO (23:36)
[2024-03-12 00:04] VITALS: BP 143/84; PULSE 74; RESP 20; TEMP 98.4; O2SAT 98
== END 2024-03-12 00:06 | disposition home or self-care (01) ==
LOC: EDH 18:38
DX: J10.1 Influenza due to other identified influenza virus with other respiratory manifestations (principal); E87.6 Hypokalemia; R10.84 Generalized abdominal pain; E11.9 Type 2 diabetes mellitus without complications; I10 Essential (primary) hypertension; Z20.822 Contact with and (suspected) exposure to COVID-19; Z88.1 Allergy status to other antibiotic agents; Z90.49 Acquired absence of other specified parts of digestive tract; Z90.710 Acquired absence of both cervix and uterus; Z79.899 Other long term (current) drug therapy; Z98.890 Other specified postprocedural states
CPT/HCPCS: 99285; 74178; 96374; 71045; 87426; 80076; 80048; 84703; 85025; 87040; 87880; 87804 ×2; 83605; 81001; 36415; 96372; J0696; J1885; Q9967